=== PATIENT | female | born 1980 | race Caucasian/White ===

== ENCOUNTER 2017-12-01 11:59 | Day surgery (SDC) | payer OTHER ==
[2017-12-01] MEDS ORDERED: METOCLOPRAMIDE 10 MG INJ (13:57)
[2017-12-01] MEDS ORDERED: PROPOFOL 40 ML (13:57)
== END 2017-12-01 15:09 | disposition home or self-care (01) ==
LOC: GIL 11:59
DX: K92.1 Melena (principal); D12.2 Benign neoplasm of ascending colon; D12.5 Benign neoplasm of sigmoid colon; K64.8 Other hemorrhoids; E03.9 Hypothyroidism, unspecified; J45.909 Unspecified asthma, uncomplicated
CPT/HCPCS: 45380; 88305

== ENCOUNTER 2017-12-04 17:16 | Emergency (ER) | payer OTHER ==
[2017-12-04 20:13] LABS: ADD MAN DIFF? NO
[2017-12-04 20:14] LABS: WHITE BLOOD COUNT 12.4 10^3/ul (4.8-10.8)
[2017-12-04 20:14] LABS: BASOPHILS % 0.2 % (0.0-2.0); HEMATOCRIT 38.7 % (37.0-47.0); HEMOGLOBIN 12.9 g/dl (12.0-16.0); LYMPHOCYTES # 0.9 10^3/ul (0.8-2.9); LYMPHOCYTES % 7.2 % (15.0-51.0); MEAN CORPUSCULAR HEMOGLOBIN 29.9 pg (29.0-33.0); MEAN CORPUSCULAR HGB CONC 33.3 g/dl (32.0-37.0); MEAN CORPUSCULAR VOLUME 89.6 fl (82.0-101.0); MEAN PLATELET VOLUME 10.3 fl (7.4-10.4); MONOCYTE # 0.2 10^3/ul (0.3-0.9); MONOCYTES % 1.5 % (0.0-11.0); NEUTROPHIL # 11.2 10^3/ul (1.6-7.5); NEUTROPHILS % 90.4 % (39.0-77.0); PLATELET COUNT 273 10^3/UL (140-415); RED BLOOD COUNT 4.32 10^6/ul (4.20-5.40); RED CELL DISTRIBUTION WIDTH 12.5 % (11.5-14.5)
[2017-12-04] MEDS: KETOROLAC 30 MG INJ IV (20:27)
[2017-12-04] MEDS: METOCLOPRAMIDE 10 MG INJ IV (20:27)
[2017-12-04] MEDS: morphine 4 MG/ML VIAL IV (20:28)
[2017-12-04] MEDS: SOD CHLORIDE 0.9% 1,000 ML IV (20:28)
[2017-12-04 20:37] LABS: ALANINE AMINOTRANSFERASE 30 IU/L (13-69); ALBUMIN 4.3 g/dl (3.3-4.9); ALBUMIN/GLOBULIN RATIO 1.16; ALKALINE PHOSPHATASE 113 IU/L (42-121); ANION GAP 16 (8-16); ASPARTATE AMINO TRANSFERASE 21 IU/L (15-46); BLOOD UREA NITROGEN 8 mg/dl (7-20); CALCIUM 9.4 mg/dl (8.4-10.2); CARBON DIOXIDE 23 mmol/L (21-31); CHLORIDE 108 mmol/L (97-110); CREATININE 0.66 mg/dl (0.44-1.00); GLUCOSE 128 mg/dl (70-220); LIPASE 46 U/L (23-300); POTASSIUM 4.2 mmol/L (3.5-5.1); SODIUM 143 mmol/L (135-144)
[2017-12-04 21:11] LABS: ADD UMIC YES; UR ASCORBIC ACID 20 mg/dL (NEGATIVE); UR BILIRUBIN (Dip) NEGATIVE (NEGATIVE); UR BLOOD (Dip) 3+ mg/dL (NEGATIVE); UR CLARITY SLIGHTLY CLOUDY (CLEAR); UR COLOR YELLOW (YELLOW); UR GLUCOSE (Dip) NEGATIVE (NEGATIVE); UR KETONES (Dip) NEGATIVE (NEGATIVE); UR LEUKOCYTE ESTERASE (Dip) NEGATIVE Leu/ul (NEGATIVE); UR NITRITE (Dip) NEGATIVE (NEGATIVE); UR RBC > 182 /HPF (0-5); UR SPECIFIC GRAVITY (Dip) 1.013 (1.003-1.030); UR SQUAMOUS EPITHELIAL CELL MODERATE /HPF (FEW); UR TOTAL PROTEIN (Dip) 1+ mg/dl (NEGATIVE); UR UROBILINOGEN (Dip) NEGATIVE (NEGATIVE); UR WBC 18 /HPF (0-5)
[2017-12-04 21:52] LABS: INR 1.03; PROTIME 13.6 Sec (11.9-14.9); PT RATIO 1.1
[2017-12-04 21:53] LABS: PARTIAL THROMBOPLASTIN TIME 30.4 Sec (25.0-35.0)
[2017-12-04] MEDS: CEFTRIAXONE 1 GM/50 ML (PMX) 50 ML IVPB (22:14)
== END 2017-12-04 22:33 | disposition home or self-care (01) ==
LOC: FTE 17:16
DX: N20.0 Calculus of kidney (principal); N30.01 Acute cystitis with hematuria; E66.9 Obesity, unspecified; Z68.43 Body mass index [BMI] 50.0-59.9, adult
CPT/HCPCS: 36415; 74176; 80053; 81001; 83690; 85025; 85610; 85730; 96374; 96375; 99285-25

== ENCOUNTER 2017-12-06 16:37 | Emergency (ER) | payer OTHER ==
[2017-12-06] MEDS: ONDANSETRON 4 MG INJ IV (19:38)
[2017-12-06] MEDS: morphine 2 MG INJ IV (19:38)
[2017-12-06] MEDS: SOD CHLORIDE 0.9% 1,000 ML IV (19:39)
[2017-12-06 19:44] LABS: ADD UMIC YES; UR ASCORBIC ACID NEGATIVE (NEGATIVE); UR BILIRUBIN (Dip) NEGATIVE (NEGATIVE); UR BLOOD (Dip) 1+ mg/dL (NEGATIVE); UR CLARITY CLEAR (CLEAR); UR COLOR YELLOW (YELLOW); UR GLUCOSE (Dip) NEGATIVE (NEGATIVE); UR KETONES (Dip) NEGATIVE (NEGATIVE); UR LEUKOCYTE ESTERASE (Dip) NEGATIVE Leu/ul (NEGATIVE); UR NITRITE (Dip) NEGATIVE (NEGATIVE); UR RBC 4 /HPF (0-5); UR SPECIFIC GRAVITY (Dip) 1.024 (1.003-1.030); UR TOTAL PROTEIN (Dip) NEGATIVE (NEGATIVE); UR UROBILINOGEN (Dip) NEGATIVE (NEGATIVE); UR WBC 0 /HPF (0-5)
[2017-12-06 20:08] LABS: ADD MAN DIFF? NO
[2017-12-06 20:10] LABS: BASOPHILS % 0.3 % (0.0-2.0); EOSINOPHILS # 0.1 10^3/ul (0.0-0.5); EOSINOPHILS % 1.3 % (0.0-7.0); HEMATOCRIT 34.3 % (37.0-47.0); HEMOGLOBIN 11.8 g/dl (12.0-16.0); LYMPHOCYTES % 19.1 % (15.0-51.0); MEAN CORPUSCULAR HEMOGLOBIN 30.3 pg (29.0-33.0); MEAN CORPUSCULAR HGB CONC 34.4 g/dl (32.0-37.0); MEAN CORPUSCULAR VOLUME 88.2 fl (82.0-101.0); MEAN PLATELET VOLUME 10.7 fl (7.4-10.4); MONOCYTE # 0.5 10^3/ul (0.3-0.9); MONOCYTES % 4.7 % (0.0-11.0); NEUTROPHIL # 7.6 10^3/ul (1.6-7.5); NEUTROPHILS % 74.1 % (39.0-77.0); PLATELET COUNT 248 10^3/UL (140-415); RED BLOOD COUNT 3.89 10^6/ul (4.20-5.40); RED CELL DISTRIBUTION WIDTH 13.1 % (11.5-14.5)
[2017-12-06 20:10] LABS: WHITE BLOOD COUNT 10.2 10^3/ul (4.8-10.8)
[2017-12-06 20:27] LABS: ALANINE AMINOTRANSFERASE 34 IU/L (13-69); ALBUMIN 4.1 g/dl (3.3-4.9); ALBUMIN/GLOBULIN RATIO 1.32; ALKALINE PHOSPHATASE 95 IU/L (42-121); ANION GAP 15 (8-16); ASPARTATE AMINO TRANSFERASE 19 IU/L (15-46); BLOOD UREA NITROGEN 8 mg/dl (7-20); CARBON DIOXIDE 26 mmol/L (21-31); CHLORIDE 105 mmol/L (97-110); CREATININE 0.71 mg/dl (0.44-1.00); GLUCOSE 90 mg/dl (70-220); LIPASE 71 U/L (23-300); POTASSIUM 4.2 mmol/L (3.5-5.1); SODIUM 142 mmol/L (135-144); TOTAL PROTEIN 7.2 g/dl (6.1-8.1)
== END 2017-12-06 21:28 | disposition home or self-care (01) ==
LOC: FTE 16:37
DX: J20.9 Acute bronchitis, unspecified (principal); K62.5 Hemorrhage of anus and rectum; E03.9 Hypothyroidism, unspecified
CPT/HCPCS: 36415; 71045; 74176; 80053; 81001; 83690; 85025; 96374; 96375; 99285-25

== ENCOUNTER 2018-01-11 09:55 | Day surgery (SDC) | payer OTHER ==
[2018-01-11] MEDS ORDERED: CEFAZOLIN 2 GM/50 ML (PMX) 50 ML IVPB (10:30)
[2018-01-11] MEDS ORDERED: ONDANSETRON 4 MG INJ (12:05)
[2018-01-11] MEDS ORDERED: PROPOFOL 20 ML ×2 (12:05→13:50)
[2018-01-11] MEDS ORDERED: CEFAZOLIN 1 GM INJ ×3 (12:05→12:53)
[2018-01-11] MEDS ORDERED: MIDAZOLAM 1 MG/ML 2 ML INJ (12:05)
[2018-01-11] MEDS ORDERED: METOCLOPRAMIDE 10 MG INJ (12:05)
[2018-01-11] MEDS ORDERED: KETOROLAC 30 MG INJ (12:11)
[2018-01-11] MEDS ORDERED: DEXAMETHASONE 4 MG/ML 1 ML INJ (12:12)
[2018-01-11] MEDS ORDERED: FAMOTIDINE 20 MG INJ (12:12)
[2018-01-11] MEDS ORDERED: ACETAMINOPHEN 1000MG/100ML IV 100 ML (12:12)
[2018-01-11] MEDS ORDERED: MEPERIDINE 25 MG INJ IV (12:30)
[2018-01-11] MEDS ORDERED: OXYCODONE/ACETAMINOPHEN (5/325) TAB PO ×2 (12:30)
[2018-01-11] MEDS ORDERED: DIPHENHYDRAMINE 50 MG INJ IV (12:30)
[2018-01-11] MEDS ORDERED: ALBUTEROL 0.083% (NEB) 2.5 MG/3 ML AMP HHN (12:30)
[2018-01-11] MEDS ORDERED: HYDROmorphONE (0.2 MG/ML) 10ML SYG IV ×3 (12:30)
[2018-01-11] MEDS ORDERED: ROCURONIUM 50 MG INJ (12:39)
[2018-01-11] MEDS ORDERED: FENTAnyl 50 MCG/ML VIAL (12:42)
[2018-01-11] MEDS ORDERED: NEOSTIGMINE 3 MG/3 ML SYRINGE (14:01)
[2018-01-11] MEDS ORDERED: HYDROCODONE/APAP (5/325) TAB PO (14:30)
[2018-01-11] MEDS: ONDANSETRON 4 MG INJ IV (14:43)
[2018-01-11] MEDS: METOCLOPRAMIDE 10 MG INJ IV (14:54)
== END 2018-01-11 16:53 | disposition home or self-care (01) ==
LOC: SDS 09:55
DX: N20.1 Calculus of ureter (principal); E03.9 Hypothyroidism, unspecified
CPT/HCPCS: 52356; 74430; 87086; 88300

== ENCOUNTER 2018-10-17 13:59 | Day surgery (SDC) | payer OTHER ==
[2018-10-17] MEDS ORDERED: PROPOFOL 80 ML (15:36)
== END 2018-10-17 16:44 | disposition home or self-care (01) ==
LOC: GIL 13:59
DX: K92.1 Melena (principal); K31.9 Disease of stomach and duodenum, unspecified; K21.0 Gastro-esophageal reflux disease with esophagitis; K64.8 Other hemorrhoids; E03.9 Hypothyroidism, unspecified
CPT/HCPCS: 43239; 88305; 88313

== ENCOUNTER 2019-02-13 11:44 | Day surgery (SDC) | payer OTHER ==
[2019-02-13] MEDS ORDERED: LIDOCAINE 2% (SDV) 5 ML INJ (14:31)
[2019-02-13] MEDS ORDERED: PROPOFOL 60 ML (14:31)
== END 2019-02-13 15:11 | disposition home or self-care (01) ==
LOC: GIL 11:44
DX: D12.4 Benign neoplasm of descending colon (principal); D12.8 Benign neoplasm of rectum; E03.9 Hypothyroidism, unspecified
CPT/HCPCS: 45380; 88305